=== PATIENT | male | born 1950 | race Caucasian/White ===

== ENCOUNTER 2019-05-21 16:43 | Inpatient (IN) | payer MEDICARE, MEDICAID ==
[~2019-05-21] VITALS: Ht 175.3 cm; Wt 62.2 kg
[2019-05-21] MEDS ORDERED: ONDANSETRON HCL 4MG/2ML INJ IV STA (17:21)
[2019-05-21] MEDS ORDERED: SODIUM CHLORIDE 0.9% 1000ML BAG (SEPSIS BOLUS) IV ONE (17:30)
[2019-05-21 18:32] LABS: BASOPHILS % 0.3 % (0.0-2.0); EOSINOPHILS % 0.5 % (0.0-5.0); HEMATOCRIT. 24.3 % (42.0-52.0); HEMOGLOBIN. 7.9 g/dL (14.0-18.0); LYMPHOCYTES % 13.6 % (20.0-50.0); MEAN CORPUSCULAR HEMOGLOBIN 28.1 pg (28.0-32.0); MEAN CORPUSCULAR VOLUME 86.7 fL (80.0-94.0); MEAN PLATELET VOLUME 7.3 fl (7.4-10.4); MONOCYTES % 5.3 % (2.0-8.0); NEUTROPHILS % 80.3 % (40.0-76.0); PLATELET 428 x1000/uL (130-400); RED BLOOD CELL COUNT 2.81 mill/uL (4.7-6.1); RED CELL DISTRIBUTION WIDTH 17.9 % (11.6-14.6)
[2019-05-21 18:39] LABS: CHLORIDE 114 mEq/L (98-107); INR 1.1; PROTHROMBIN TIME 11.4 sec (9.6-11.0)
[2019-05-21] MEDS ORDERED: SODIUM BICARBONATE 8.4% 1 MEQ/ML 50ML SYR IV ONE (19:15)
[2019-05-21] MEDS ORDERED: PIPERACILLIN/TAZ 3.375G PREMIX 50 ML IV ONE (19:15)
[2019-05-21] MEDS ORDERED: ZOLPIDEM TARTRATE 5MG TABLET PO PRN (19:45)
[2019-05-21] MEDS ORDERED: CLONIDINE 0.1MG TABLET PO PRN (19:45)
[2019-05-21] MEDS ORDERED: TRAMADOL 50MG TABLET PO PRN (19:45)
[2019-05-21] MEDS ORDERED: GUAIFENESIN 200MG/10ML SUGAR FREE UDC PO PRN (19:45)
[2019-05-21] MEDS ORDERED: IPRATROPIUM/ALBUTEROL 0.5-3(2.5)MG/3ML NEB HHN PRN (19:45)
[2019-05-21] MEDS ORDERED: MAGNESIUM/ALUMINUM HYDROXIDE/SIMETHICONE 30ML UDC PO PRN (19:45)
[2019-05-21] MEDS ORDERED: ACETAMINOPHEN 325MG TABLET PO PRN (19:45)
[2019-05-21] MEDS ORDERED: DOCUSATE SODIUM 100MG CAPSULE PO PRN (19:45)
[2019-05-21] MEDS ORDERED: MORPHINE SULFATE 2 MG/ML CPJ (NOT FOR IM USE) IV PRN (19:45)
[2019-05-21] MEDS ORDERED: NITROGLYCERIN 0.4MG TABLET SL SL PRN (19:45)
[2019-05-21] MEDS ORDERED: ONDANSETRON HCL 4MG/2ML INJ IV PRN (19:45)
[2019-05-21] MEDS ORDERED: LORAZEPAM 0.5MG TABLET PO PRN (19:45)
[2019-05-21] MEDS ORDERED: DEXTROSE 50% WATER 50ML SYRINGE IV PRN (20:00)
[2019-05-21 21:39] LABS: VITAMIN B12 SERUM > 2000.0 pg/mL (211-911)
[2019-05-21] MEDS: SODIUM CHLORIDE 0.9% 1,000 ML IV SCH ×2 (21:47→23:46)
[2019-05-21] MEDS ORDERED: LEVETIRACETAM 1000MG/100ML 100 ML IV ONE (22:15)
[2019-05-21] MEDS ORDERED: LORAZEPAM 2MG/ML CPJ IV ONE (22:15)
[2019-05-21] MEDS ORDERED: LORAZEPAM 2MG/ML CPJ IV PRN (22:30)
[2019-05-21] MEDS: INSULIN LISPRO 100 UNITS/ML SUBCUT SCH (23:57)
[2019-05-21] MEDS: BLOOD SUGAR DIAGNOSTIC STRIP TEST SCH (23:58)
[2019-05-22] VITALS (47 sets, daily range): BP systolic 66–115; BP diastolic 36–66
[2019-05-22] MEDS ORDERED: FERR220S12 PO (03:24)
[2019-05-22] MEDS ORDERED: FURO40TA5 MT (03:24)
[2019-05-22] MEDS ORDERED: ASPI-1158 MT (03:24)
[2019-05-22] MEDS ORDERED: LINA5TAB MT (03:24)
[2019-05-22] MEDS ORDERED: CAPE500T15 MT (03:24)
[2019-05-22] MEDS ORDERED: CAPE500T15 PO (03:24)
[2019-05-22] MEDS ORDERED: CLOP75TA33 MT (03:24)
[2019-05-22 04:03] LABS: CLARITY URINE CLEAR (CLEAR); COLOR URINE YELLOW (YELLOW); KETONES URINE NEGATIVE (NEGATIVE); LEUKOCYTE ESTERASE URINE NEGATIVE (NEGATIVE); NITRITE URINE NEGATIVE (NEGATIVE); OCCULT BLOOD URINE NEGATIVE (NEGATIVE); PH URINE 5.5 (4.5-8.0); PROTEIN URINE 1+ (NEGATIVE); SPECIFIC GRAVITY URINE 1.017 (1.005-1.030); UROBILINOGEN URINE 0.2 E.U./dL (0.2-1.0)
[2019-05-22 04:16] LABS: *AMPHETAMINES SCREEN URINE NEGATIVE (NEGATIVE); *BARBITURATES SCREEN URINE NEGATIVE (NEGATIVE); *BENZODIAZEPINES SCREEN URINE NEGATIVE (NEGATIVE); *COCAINE SCREEN URINE NEGATIVE (NEGATIVE); METHADONE URINE SCREEN NEGATIVE (NEGATIVE); OPIATES URINE SCREEN NEGATIVE (NEGATIVE)
[2019-05-22 04:17] LABS: CANNABINOID URINE SCREEN NEGATIVE (NEGATIVE); PHENCYCLIDINE URINE SCREEN NEGATIVE (NEGATIVE)
[2019-05-22] MEDS: PIPERACILLIN/TAZOBACTAM 3.375 G in DEXT 5% WATER 100 ML IV SCH ×3 (06:03→21:37)
[2019-05-22] MEDS: BLOOD SUGAR DIAGNOSTIC STRIP TEST SCH ×4 (07:30→21:37)
[2019-05-22] MEDS: INSULIN LISPRO 100 UNITS/ML SUBCUT SCH ×4 (08:00→21:00)
[2019-05-22] MEDS ORDERED: SODIUM CHLORIDE 0.9% 1000ML BAG (SEPSIS BOLUS) IV ONE ×2 (08:30→12:45)
[2019-05-22] MEDS ORDERED: SODIUM CHLORIDE 0.9% 1,000 ML IV ONE (08:45)
[2019-05-22 08:51] LABS: CREATINE KINASE MB FRACTION 1.3 ng/mL (0.5-3.6)
[2019-05-22] MEDS: ENOXAPARIN 40MG/0.4ML SYR SUBCUT SCH ×2 (09:00→09:19)
[2019-05-22] MEDS ORDERED: NON FORMULARY PATIENT HOME MED PO SCH (09:00)
[2019-05-22] MEDS: ZINC SULFATE 220 MG ( 50 ) CAPSULE PO SCH (09:19)
[2019-05-22] MEDS: CAPECITABINE PO SCH ×2 (09:19→17:44)
[2019-05-22] MEDS: ASCORBIC ACID 500 MG TABLET PO SCH ×2 (09:19→21:00)
[2019-05-22 10:48] LABS: CHLORIDE 116 mEq/L (98-107)
[2019-05-22 10:49] LABS: EOSINOPHILS % 1.1 % (0.0-5.0); MEAN CORPUSCULAR HEMOGLOBIN 27.7 pg (28.0-32.0); MEAN CORPUSCULAR VOLUME 86.3 fL (80.0-94.0); MEAN PLATELET VOLUME 7.5 fl (7.4-10.4); MONOCYTES % 5.9 % (2.0-8.0); PLATELET 381 x1000/uL (130-400); RED BLOOD CELL COUNT 2.35 mill/uL (4.7-6.1)
[2019-05-22 10:55] LABS: HEMATOCRIT. 20.3 % (42.0-52.0); HEMOGLOBIN. 6.5 g/dL (14.0-18.0)
[2019-05-22] MEDS: SODIUM CHLORIDE 0.9% 1,000 ML IV SCH ×2 (11:34→15:28)
[2019-05-22] MEDS ORDERED: SODIUM CHLORIDE 0.9% 1,000 ML IV SCH (13:00)
[2019-05-22 20:33] LABS: HEMATOCRIT 23.8 % (42.0-52.0); HEMOGLOBIN 8.1 g/dL (14.0-18.0)
[2019-05-23] VITALS (10 sets, daily range): BP systolic 90–110; BP diastolic 41–58
[2019-05-23] MEDS: SODIUM CHLORIDE 0.9% 1,000 ML IV SCH ×2 (00:22→10:46)
[2019-05-23 02:09] LABS: HEMATOCRIT 21.9 % (42.0-52.0); HEMOGLOBIN 7.4 g/dL (14.0-18.0)
[2019-05-23] MEDS: PIPERACILLIN/TAZOBACTAM 3.375 G in DEXT 5% WATER 100 ML IV SCH ×2 (06:30→14:00)
[2019-05-23] MEDS: INSULIN LISPRO 100 UNITS/ML SUBCUT SCH ×3 (08:00→18:00)
[2019-05-23] MEDS: BLOOD SUGAR DIAGNOSTIC STRIP TEST SCH ×3 (08:01→17:30)
[2019-05-23] MEDS: ASCORBIC ACID 500 MG TABLET PO SCH (08:40)
[2019-05-23] MEDS: ZINC SULFATE 220 MG ( 50 ) CAPSULE PO SCH (08:40)
[2019-05-23] MEDS: CAPECITABINE PO SCH ×2 (08:41→17:00)
== END 2019-05-23 20:20 | disposition left against medical advice (07) | DRG 871 ==
LOC: ER 16:43 → 5EST 19:12 → EDBEDREQ 19:14 → EDBEDREQSVC 19:14 → SUPCPDRO 19:28 → ENRESERV 22:04
PROVIDERS: ADMIT Internal Medicine; ATTEND Internal Medicine
PROC: 30233N1 Transfusion of Nonautologous Red Blood Cells into Peripheral Vein, Percutaneous Approach (ICD-10-PCS; principal; 2019-05-22)
DX: A41.9 Sepsis, unspecified organism (principal); E43 Unspecified severe protein-calorie malnutrition; K92.2 Gastrointestinal hemorrhage, unspecified; C18.9 Malignant neoplasm of colon, unspecified; D62 Acute posthemorrhagic anemia; E87.2 Acidosis; Z53.21 Procedure and treatment not carried out due to patient leaving prior to being seen by health care provider; E11.65 Type 2 diabetes mellitus with hyperglycemia; I10 Essential (primary) hypertension; K80.20 Calculus of gallbladder without cholecystitis without obstruction; D50.9 Iron deficiency anemia, unspecified; E86.0 Dehydration; E83.51 Hypocalcemia; D63.0 Anemia in neoplastic disease; I95.9 Hypotension, unspecified; Z93.3 Colostomy status; Z68.20 Body mass index [BMI] 20.0-20.9, adult
CPT/HCPCS: 36415; 71045; 74176; 80048; 80061; 80305; 81003; 82550; 82553; 82607; 82746; 82962; 83036; 83540; 83550; 83605; 83880; 84145; 84484; 85014; 85018; 86850; 86900; 86920; 93005; 99285; J1650; J2405; J2543; J3490; J7030; J7040; J7060; P9016